=== PATIENT | female | born 1990 | race African-American/Black ===

== ENCOUNTER 2022-01-21 19:02 | Inpatient (IN) | payer MEDICAID ==
[~2022-01-21] VITALS: Ht 162.6 cm; Wt 81.6 kg
[~2022-01-21 19:02] MED LIST: ALBUTEROL
[2022-01-21 20:26] LABS: CLARITY URINE CLEAR (CLEAR); COLOR URINE YELLOW (YELLOW); KETONES URINE NEGATIVE (NEGATIVE); LEUKOCYTE ESTERASE URINE 1+ (NEGATIVE); NITRITE URINE NEGATIVE (NEGATIVE); OCCULT BLOOD URINE TRACE (NEGATIVE); PROTEIN URINE 1+ (NEGATIVE); SPECIFIC GRAVITY URINE 1.018 (1.005-1.030)
[2022-01-21] MEDS: LACTATED RINGERS 1,000 ML IV SCH (23:09)
[2022-01-21] MEDS ORDERED: CEFAZOLIN 2,000 MG in DEXT 5% WATER 100 ML IV NR (23:30)
[2022-01-22] MEDS: TERBUTALINE SULFATE 1MG/ML VIAL SUBCUT PRN ×2 (00:28→00:58)
[2022-01-22] MEDS ORDERED: BETAMETHASONE ACET/BETAMET 30 MG/5 ML VIAL IM ONE (01:15)
[2022-01-22] MEDS ORDERED: BUTORPHANOL TARTRATE 2 MG/ML VIAL IV PRN (01:15)
[2022-01-22] MEDS: LACTATED RINGERS 1,000 ML IV SCH (02:24)
[2022-01-22] MEDS ORDERED: LACTATED RINGERS 1,000 ML IV SCH (03:30)
[2022-01-22] MEDS ORDERED: METHYLERGONOVINE MALEATE 0.2 MG/ML IM PRN (03:30)
[2022-01-22] MEDS ORDERED: NALOXONE HCL 0.4 MG/ML 1ML VIAL IM PRN (03:30)
[2022-01-22] MEDS ORDERED: DEXT 5%/LR + PITOCIN 20UNITS/L 1,000 ML IV SCH ×2 (03:30→06:30)
[2022-01-22] MEDS ORDERED: MAGNESIUM 4 G PREMIX 100 ML IV NR (03:30)
[2022-01-22 04:27] LABS: BASOPHILS % 0.2 % (0.0-2.0); EOSINOPHILS % 0.1 % (0.0-5.0); HEMATOCRIT. 30.9 % (36.0-48.0); HEMOGLOBIN. 10.5 g/dL (12.0-16.0); LYMPHOCYTES % 7.6 % (20.0-50.0); MEAN CORPUSCULAR HEMOGLOBIN 28.7 pg (28.0-32.0); MEAN CORPUSCULAR VOLUME 84.2 fL (81.0-99.0); MEAN PLATELET VOLUME 8.4 fl (7.4-10.4); MONOCYTES % 7.4 % (2.0-8.0); NEUTROPHILS % 84.7 % (40.0-76.0); PLATELET 338 x1000/uL (130-400); RED BLOOD CELL COUNT 3.67 mill/uL (4.2-5.4); RED CELL DISTRIBUTION WIDTH 14.5 % (11.6-14.6)
[2022-01-22] MEDS ORDERED: CEFAZOLIN SODIUM 1000MG/VIAL ONE (04:29)
[2022-01-22] MEDS ORDERED: OXYTOCIN 10 UNITS/ML 1ML ONE (04:29)
[2022-01-22] MEDS ORDERED: DEXAMETHASONE 4MG/ML 1ML VIAL ONE (04:30)
[2022-01-22] MEDS ORDERED: ONDANSETRON HCL 4MG/2ML INJ ONE (04:30)
[2022-01-22] MEDS ORDERED: EPHEDRINE SULFATE 50MG/ML VIAL ONE (04:30)
[2022-01-22 04:40] LABS: INR 0.9; PARTIAL THROMBOPLASTIN TIME 30.2 sec (23.4-31.0); PROTHROMBIN TIME 9.8 sec (9.6-11.0)
[2022-01-22] MEDS ORDERED: MORPHINE SULFATE/PF 1MG/ML 10ML AMP ONE (04:48)
[2022-01-22] MEDS ORDERED: NALOXONE HCL 0.4 MG/ML 1ML VIAL IV PRN ×2 (05:30→06:00)
[2022-01-22] MEDS ORDERED: PHENYLEPHRINE HCL 10 MG/ML 1ML (IV VIAL) IV ONE (05:41)
[2022-01-22] MEDS ORDERED: HYDROMORPHONE HCL/PF 2MG/ML CPJ IM PRN (06:30)
[2022-01-22] MEDS ORDERED: DIPHENHYDRAMINE 25MG CAPSULE PO PRN (06:30)
[2022-01-22] MEDS ORDERED: BISACODYL 10MG SUPP PR PRN (06:30)
[2022-01-22] MEDS ORDERED: IBUPROFEN 400MG TABLET PO PRN (06:30)
[2022-01-22] MEDS ORDERED: RHO(D) IMMUNE GLOBULIN 300 MCG/SYR IM PRN (06:30)
[2022-01-22 08:30] VITALS: BP 117/78
[2022-01-22 08:54] LABS: HEPATITIS B SURFACE ANTIGEN NEGATIVE
[2022-01-22 09:00] VITALS: BP 120/78
[2022-01-22 15:38] VITALS: BP 110/81
[2022-01-22 22:00] VITALS: BP 121/71
[2022-01-23 00:01] VITALS: BP 119/57
[2022-01-23 04:15] VITALS: BP 110/58
[2022-01-23] MEDS: IBUPROFEN 800MG TABLET PO PRN ×2 (04:24→21:53)
[2022-01-23 07:51] LABS: BASOPHILS % 0.2 % (0.0-2.0); EOSINOPHILS % 0.7 % (0.0-5.0); HEMATOCRIT. 24.1 % (36.0-48.0); HEMOGLOBIN. 8.2 g/dL (12.0-16.0); LYMPHOCYTES % 11.5 % (20.0-50.0); MEAN CORPUSCULAR HEMOGLOBIN 28.6 pg (28.0-32.0); MEAN CORPUSCULAR VOLUME 84.1 fL (81.0-99.0); MEAN PLATELET VOLUME 8.5 fl (7.4-10.4); MONOCYTES % 9.6 % (2.0-8.0); PLATELET 308 x1000/uL (130-400); RED BLOOD CELL COUNT 2.87 mill/uL (4.2-5.4); RED CELL DISTRIBUTION WIDTH 14.7 % (11.6-14.6)
[2022-01-23 08:07] LABS: *AMPHETAMINES SCREEN URINE NEGATIVE (NEGATIVE); *BENZODIAZEPINES SCREEN URINE NEGATIVE (NEGATIVE); *COCAINE SCREEN URINE NEGATIVE (NEGATIVE); OPIATES URINE SCREEN NEGATIVE (NEGATIVE); PHENCYCLIDINE URINE SCREEN NEGATIVE (NEGATIVE)
[2022-01-23 08:09] LABS: CANNABINOID URINE SCREEN PRESUMTIVE POSITIVE (NEGATIVE)
[2022-01-23 08:10] VITALS: BP 122/76
[2022-01-23] MEDS: FERROUS SULFATE 325MG TABLET PO SCH ×2 (08:20→13:54)
[2022-01-23] MEDS: PRENATAL VIT/FE FUMARATE/FA TABLET PO SCH (08:20)
[2022-01-23] MEDS: HYDROCODONE/ACETAMINOPHEN 5/325MG TABLET PO PRN ×3 (08:21→19:29)
[2022-01-23 12:11] LABS: *BARBITURATES SCREEN URINE NEGATIVE (NEGATIVE); METHADONE URINE SCREEN NEGATIVE (NEGATIVE)
[2022-01-23 16:30] VITALS: BP 120/89
[2022-01-23 19:30] VITALS: BP 121/61
[2022-01-23] MEDS ORDERED: PENICILLIN G BENZATHINE 2,400,000 UNITS/4ML SYR IM NR (20:00)
[2022-01-24 04:00] VITALS: BP 120/86
[2022-01-24 08:30] VITALS: BP 116/61
[2022-01-24] MEDS: FERROUS SULFATE 325MG TABLET PO SCH ×3 (08:45→15:52)
[2022-01-24] MEDS: HYDROCODONE/ACETAMINOPHEN 5/325MG TABLET PO PRN ×3 (08:46→20:30)
[2022-01-24] MEDS: PRENATAL VIT/FE FUMARATE/FA TABLET PO SCH (08:46)
[2022-01-24] MEDS: IBUPROFEN 800MG TABLET PO PRN (12:16)
[2022-01-24 16:35] VITALS: BP 126/76
[2022-01-24 19:30] VITALS: BP 118/62
[2022-01-25] MEDS: HYDROCODONE/ACETAMINOPHEN 5/325MG TABLET PO PRN ×2 (03:30→07:54)
[2022-01-25 04:00] VITALS: BP 137/76
[2022-01-25] MEDS ORDERED: FERR-63 PO (05:00)
[2022-01-25] MEDS ORDERED: IBUP-2030 PO (05:00)
[2022-01-25] MEDS ORDERED: MULT-1116 MT (05:00)
[2022-01-25] MEDS ORDERED: MEDROXYPROGESTERONE ACETATE 150MG/ML VIAL IM SCH (06:00)
[2022-01-25 07:50] VITALS: BP 109/67
[2022-01-25] MEDS: FERROUS SULFATE 325MG TABLET PO SCH (07:54)
[2022-01-25] MEDS: PRENATAL VIT/FE FUMARATE/FA TABLET PO SCH (07:54)
== END 2022-01-25 11:45 | disposition home or self-care (01) | DRG 540 ==
LOC: 8 EST LDRP 19:02 → OBSVTOIN 19:02 → 8EST 01-22 08:30
PROVIDERS: ADMIT Obstetrics & Gynecology; ATTEND Pediatrics Neonatal-Perinatal Medicine
PROC: 10D00Z1 Extraction of Products of Conception, Low, Open Approach (ICD-10-PCS; principal; 2022-01-25)
DX: O32.8XX2 Maternal care for other malpresentation of fetus, fetus 2 (principal); O60.14X1 Preterm labor third trimester with preterm delivery third trimester, fetus 1; O60.14X2 Preterm labor third trimester with preterm delivery third trimester, fetus 2; O99.324 Drug use complicating childbirth; Z37.2 Twins, both liveborn; A53.0 Latent syphilis, unspecified as early or late; O42.913 Preterm premature rupture of membranes, unspecified as to length of time between rupture and onset of labor, third trimester; O77.0 Labor and delivery complicated by meconium in amniotic fluid; O30.043 Twin pregnancy, dichorionic/diamniotic, third trimester; J45.909 Unspecified asthma, uncomplicated; F12.10 Cannabis abuse, uncomplicated; O99.52 Diseases of the respiratory system complicating childbirth; Z20.822 Contact with and (suspected) exposure to COVID-19; Z3A.35 35 weeks gestation of pregnancy; O90.81 Anemia of the puerperium; Z83.3 Family history of diabetes mellitus
CPT/HCPCS: 36415; 76805; 76810; 76815; 76818; 80305; 80349; 81003; 85025; 86592; 86593; 86703; 86762; 86780; 86850; 86900; 87340; 87426; 88307; 99281; G0378; J0561; J0595; J0690; J0702; J1050; J1100; J2274; J2370; J2405; J3105; J3475; J3490; J7060; J7120; A4315

== ENCOUNTER 2022-11-12 06:46 | Observation (INO) | payer MEDICAID ==
[~2022-11-12] VITALS: Ht 167.6 cm; Wt 78.5 kg
[~2022-11-12 06:46] MED LIST changes: +ALBU6.7H3 INH; +FERR-63 PO; +IBUP-2030 PO; +MULT-1116 MT; +PREN1TAB23 PO
[2022-11-12] MEDS ORDERED: ACETAMINOPHEN 500MG TABLET PO NR (08:00)
[2022-11-12] MEDS ORDERED: ONDANSETRON HCL 4MG/2ML INJ IV PRN (08:30)
[2022-11-12 10:26] LABS: CLARITY URINE CLEAR (CLEAR); COLOR URINE YELLOW (YELLOW); KETONES URINE NEGATIVE (NEGATIVE); LEUKOCYTE ESTERASE URINE NEGATIVE (NEGATIVE); NITRITE URINE NEGATIVE (NEGATIVE); OCCULT BLOOD URINE NEGATIVE (NEGATIVE); PROTEIN URINE TRACE (NEGATIVE); SPECIFIC GRAVITY URINE 1.014 (1.005-1.030); UROBILINOGEN URINE 0.2 E.U./dL (0.2-1.0)
[2022-11-12] MEDS ORDERED: DEXT 5%/LACTATED RINGERS 1,000 ML IV SCH (11:00)
[2022-11-12 11:11] LABS: HEMATOCRIT. 29.5 % (36.0-48.0); MEAN CORPUSCULAR HEMOGLOBIN 29.7 pg (28.0-32.0); MEAN CORPUSCULAR VOLUME 87.8 fL (81.0-99.0); MEAN PLATELET VOLUME 8.7 fl (7.4-10.4); PLATELET 292 x1000/uL (130-400); RED BLOOD CELL COUNT 3.36 mill/uL (4.2-5.4); RED CELL DISTRIBUTION WIDTH 14.6 % (11.6-14.6)
[2022-11-12 11:20] LABS: CHLORIDE 105 mEq/L (98-107)
[2022-11-12 11:46] LABS: PLATELET ESTIMATE NORMAL
[2022-11-12] MEDS ORDERED: OSELTAMIVIR 75MG CAPSULE PO NR (13:30)
== END 2022-11-12 13:30 | disposition home or self-care (01) ==
LOC: 8 EST LDRP 06:46
PROVIDERS: ADMIT Obstetrics & Gynecology; ATTEND Obstetrics & Gynecology
DX: O30.003 Twin pregnancy, unspecified number of placenta and unspecified number of amniotic sacs, third trimester (principal); Z20.822 Contact with and (suspected) exposure to COVID-19; O26.893 Other specified pregnancy related conditions, third trimester; R53.1 Weakness; R52 Pain, unspecified; Z3A.32 32 weeks gestation of pregnancy
CPT/HCPCS: 36415; 59025; 76805; 76810; 76815; 76818; 80053; 81003; 85025; 87426; 87804; 96360; 96361; G0378; 99281; J7121

== ENCOUNTER 2022-12-29 08:07 | Inpatient (IN) | payer MEDICAID, OTHER ==
[~2022-12-29] VITALS: Ht 167.6 cm; Wt 91.6 kg
[2022-12-29] MEDS ORDERED: METHYLERGONOVINE MALEATE 0.2 MG/ML IM PRN (10:00)
[2022-12-29] MEDS ORDERED: MISOPROSTOL 100MCG TABLET VG SCH (10:00)
[2022-12-29] MEDS ORDERED: OXYTOCIN 30 UNITS/500ML NS PMX 500 ML IV SCH (10:00)
[2022-12-29] MEDS ORDERED: CARBOPROST TROMETHAMINE 250 MCG/ML AMPUL IM PRN (10:00)
[2022-12-29] MEDS ORDERED: LACTATED RINGERS 1,000 ML IV SCH (10:00)
[2022-12-29 10:52] LABS: BASOPHILS % 0.3 % (0.0-2.0); EOSINOPHILS % 0.9 % (0.0-5.0); HEMATOCRIT. 33.7 % (36.0-48.0); HEMOGLOBIN. 11.3 g/dL (12.0-16.0); LYMPHOCYTES % 14.3 % (20.0-50.0); MEAN CORPUSCULAR HEMOGLOBIN 29.1 pg (28.0-32.0); MEAN PLATELET VOLUME 9.3 fl (7.4-10.4); MONOCYTES % 11.4 % (2.0-8.0); NEUTROPHILS % 73.1 % (40.0-76.0); PLATELET 290 x1000/uL (130-400); RED BLOOD CELL COUNT 3.88 mill/uL (4.2-5.4); RED CELL DISTRIBUTION WIDTH 14.8 % (11.6-14.6)
[2022-12-29 10:56] LABS: CLARITY URINE CLEAR (CLEAR); COLOR URINE YELLOW (YELLOW); KETONES URINE NEGATIVE (NEGATIVE); LEUKOCYTE ESTERASE URINE TRACE (NEGATIVE); NITRITE URINE NEGATIVE (NEGATIVE); OCCULT BLOOD URINE NEGATIVE (NEGATIVE); PROTEIN URINE TRACE (NEGATIVE); SPECIFIC GRAVITY URINE 1.015 (1.005-1.030)
[2022-12-29 11:02] LABS: INR 0.9; PARTIAL THROMBOPLASTIN TIME 27.1 sec (23.4-31.0); PROTHROMBIN TIME 9.7 sec (9.6-11.0)
[2022-12-29] MEDS ORDERED: MORPHINE SULFATE/PF 1MG/ML 10ML AMP ONE (11:34)
[2022-12-29] MEDS ORDERED: OXYTOCIN 10 UNITS/ML 1ML ONE (11:34)
[2022-12-29] MEDS ORDERED: NALOXONE HCL 0.4 MG/ML 1ML VIAL IV PRN (12:00)
[2022-12-29] MEDS ORDERED: MORPHINE SULFATE 2 MG/ML CPJ (NOT FOR IM USE) IV PRN (12:00)
[2022-12-29] MEDS ORDERED: FENTANYL CITRATE/PF 50MCG/ML 2ML VIAL IV PRN (12:00)
[2022-12-29] MEDS ORDERED: PHENYLEPHRINE HCL 10 MG/ML 1ML (IV VIAL) IV ONE (12:05)
[2022-12-29] MEDS ORDERED: TRANEXAMIC ACID 10 ML ONE (12:35)
[2022-12-29 12:39] LABS: *AMPHETAMINES SCREEN URINE NEGATIVE (NEGATIVE); *BARBITURATES SCREEN URINE NEGATIVE (NEGATIVE); *BENZODIAZEPINES SCREEN URINE NEGATIVE (NEGATIVE); *COCAINE SCREEN URINE NEGATIVE (NEGATIVE); CANNABINOID URINE SCREEN NEGATIVE (NEGATIVE); METHADONE URINE SCREEN NEGATIVE (NEGATIVE); OPIATES URINE SCREEN NEGATIVE (NEGATIVE); PHENCYCLIDINE URINE SCREEN NEGATIVE (NEGATIVE)
[2022-12-29 12:53] LABS: HEPATITIS B SURFACE ANTIGEN NEGATIVE
[2022-12-29] MEDS ORDERED: ONDANSETRON HCL 4MG/2ML INJ ONE (13:01)
[2022-12-29] MEDS ORDERED: KETOROLAC 60MG/2ML VIAL IM ONE (13:01)
[2022-12-29] MEDS ORDERED: DEXAMETHASONE 4MG/ML 1ML VIAL ONE (13:02)
[2022-12-29] MEDS ORDERED: CEFAZOLIN SODIUM 1000MG/VIAL ONE (13:02)
[2022-12-29] MEDS ORDERED: HYDROMORPHONE HCL/PF 2MG/ML CPJ IM PRN (13:30)
[2022-12-29] MEDS ORDERED: IBUPROFEN 400MG TABLET PO PRN (13:30)
[2022-12-29] MEDS ORDERED: DIPHENHYDRAMINE 25MG CAPSULE PO PRN (13:30)
[2022-12-29] MEDS ORDERED: BISACODYL 10MG SUPP PR PRN (13:30)
[2022-12-29] MEDS ORDERED: NALOXONE HCL 0.4MG/ML VIAL IV PRN (13:45)
[2022-12-29] MEDS ORDERED: ONDANSETRON HCL 4MG/2ML INJ IV PRN (16:00)
[2022-12-29 16:30] VITALS: BP 119/66
[2022-12-29 20:00] VITALS: BP 117/70
[2022-12-30 04:00] VITALS: BP 132/65
[2022-12-30] MEDS: KETOROLAC 30MG/ML VIAL IV SCH ×2 (04:15→13:07)
[2022-12-30 07:10] LABS: BASOPHILS % 0.6 % (0.0-2.0); EOSINOPHILS % 0.4 % (0.0-5.0); HEMATOCRIT. 29.8 % (36.0-48.0); HEMOGLOBIN. 10.4 g/dL (12.0-16.0); LYMPHOCYTES % 14.3 % (20.0-50.0); MEAN CORPUSCULAR HEMOGLOBIN 30.3 pg (28.0-32.0); MEAN CORPUSCULAR VOLUME 86.7 fL (81.0-99.0); NEUTROPHILS % 75.7 % (40.0-76.0); PLATELET 262 x1000/uL (130-400); RED BLOOD CELL COUNT 3.43 mill/uL (4.2-5.4); RED CELL DISTRIBUTION WIDTH 14.2 % (11.6-14.6)
[2022-12-30 08:00] VITALS: BP 105/54
[2022-12-30] MEDS: IBUPROFEN 800MG TABLET PO PRN ×2 (09:30→18:52)
[2022-12-30] MEDS: PRENATAL VIT/FE FUMARATE/FA TABLET PO SCH (09:30)
[2022-12-30] MEDS: FERROUS SULFATE 325MG TABLET PO SCH ×2 (09:30→13:07)
[2022-12-30 16:00] VITALS: BP 116/67
[2022-12-30 20:00] VITALS: BP 136/82
[2022-12-31] MEDS: IBUPROFEN 800MG TABLET PO PRN ×4 (01:48→20:53)
[2022-12-31 04:00] VITALS: BP 117/62
[2022-12-31 06:38] LABS: BASOPHILS % 0.3 % (0.0-2.0); EOSINOPHILS % 0.6 % (0.0-5.0); HEMATOCRIT. 29.7 % (36.0-48.0); HEMOGLOBIN. 10.3 g/dL (12.0-16.0); MEAN CORPUSCULAR HEMOGLOBIN 30.1 pg (28.0-32.0); MEAN CORPUSCULAR VOLUME 86.9 fL (81.0-99.0); MEAN PLATELET VOLUME 8.5 fl (7.4-10.4); MONOCYTES % 12.4 % (2.0-8.0); NEUTROPHILS % 68.7 % (40.0-76.0); PLATELET 285 x1000/uL (130-400); RED BLOOD CELL COUNT 3.42 mill/uL (4.2-5.4); RED CELL DISTRIBUTION WIDTH 14.6 % (11.6-14.6)
[2022-12-31 08:30] VITALS: BP 141/87
[2022-12-31] MEDS: PRENATAL VIT/FE FUMARATE/FA TABLET PO SCH (08:30)
[2022-12-31] MEDS: FERROUS SULFATE 325MG TABLET PO SCH ×2 (08:30→15:08)
[2022-12-31 20:00] VITALS: BP 109/73
[2023-01-01] MEDS: IBUPROFEN 800MG TABLET PO PRN (03:51)
[2023-01-01 04:00] VITALS: BP 129/85
[2023-01-01 08:00] VITALS: BP 151/84
[2023-01-01 08:30] VITALS: BP 145/81
== END 2023-01-01 12:33 | disposition home or self-care (01) | DRG 540 ==
LOC: 8 EST LDRP 08:07 → OBSVTOIN 10:05 → 8EST 16:18
PROVIDERS: ADMIT Obstetrics & Gynecology; ATTEND Obstetrics & Gynecology
PROC: 10D00Z1 Extraction of Products of Conception, Low, Open Approach (ICD-10-PCS; principal; 2022-12-29)
DX: O30.003 Twin pregnancy, unspecified number of placenta and unspecified number of amniotic sacs, third trimester (principal); D62 Acute posthemorrhagic anemia; Z37.2 Twins, both liveborn; O99.12 Other diseases of the blood and blood-forming organs and certain disorders involving the immune mechanism complicating childbirth; O32.3XX0 Maternal care for face, brow and chin presentation, not applicable or unspecified; Z20.822 Contact with and (suspected) exposure to COVID-19; O69.81X0 Labor and delivery complicated by cord around neck, without compression, not applicable or unspecified; Z3A.39 39 weeks gestation of pregnancy; O99.02 Anemia complicating childbirth; J45.909 Unspecified asthma, uncomplicated; D72.829 Elevated white blood cell count, unspecified
CPT/HCPCS: 36415; 80305; 81003; 85025; 86592; 86593; 86703; 86762; 86780; 86850; 86900; 86920; 87340; 87426; 88307; 99281; G0378; J0690; J1100; J1885; J2274; J2370; J2405; J7120; A4315; J2590

== ENCOUNTER 2023-01-09 14:25 | Emergency (ER) | payer MEDICAID ==
[~2023-01-09] VITALS: Ht 167.6 cm; Wt 80.0 kg
[~2023-01-09 14:25] MED LIST changes: -ALBU6.7H3 INH; -ALBUTEROL; -PREN1TAB23 PO
[2023-01-09 14:59] VITALS: BP 110/83
== END 2023-01-09 22:22 | disposition left against medical advice (07) ==
LOC: ER 14:25
DX: Z53.21 Procedure and treatment not carried out due to patient leaving prior to being seen by health care provider (principal)

== ENCOUNTER 2023-01-11 09:02 | Emergency (ER) | payer MEDICAID ==
[~2023-01-11] VITALS: Ht 167.6 cm; Wt 85.5 kg
[2023-01-11 09:24] VITALS: BP 156/98
[2023-01-11 14:32] LABS: HEMATOCRIT. 36.9 % (36.0-48.0); HEMOGLOBIN. 12.3 g/dL (12.0-16.0); MEAN CORPUSCULAR HEMOGLOBIN 29.4 pg (28.0-32.0); MEAN CORPUSCULAR VOLUME 88.6 fL (81.0-99.0); MEAN PLATELET VOLUME 6.7 fl (7.4-10.4); PLATELET 563 x1000/uL (130-400); RED BLOOD CELL COUNT 4.17 mill/uL (4.2-5.4); RED CELL DISTRIBUTION WIDTH 14.4 % (11.6-14.6)
[2023-01-11 14:39] LABS: CHLORIDE 107 mEq/L (98-107)
[2023-01-11] MEDS ORDERED: MULT-1116 MT (15:45)
[2023-01-11] MEDS ORDERED: IBUP-2030 PO (15:45)
[2023-01-11] MEDS ORDERED: FERR-63 PO (15:45)
[2023-01-11 16:17] LABS: PLATELET ESTIMATE INCREASED
== END 2023-01-11 16:32 | disposition home or self-care (01) ==
LOC: ER 09:02
DX: M79.641 Pain in right hand (principal); J45.909 Unspecified asthma, uncomplicated; Z98.890 Other specified postprocedural states
CPT/HCPCS: 36415; 80048; 83735; 85025; 99283

== ENCOUNTER 2023-06-27 06:49 | Emergency (ER) | payer MEDICAID, OTHER ==
[~2023-06-27] VITALS: Ht 167.6 cm; Wt 83.0 kg
[2023-06-27 06:54] VITALS: BP 149/85; PULSE 107; RESP 18; TEMP 98.1; O2SAT 98
[2023-06-27] MEDS ORDERED: ACETAMINOPHEN 325MG TABLET PO PRN (07:15)
== END 2023-06-27 08:19 | disposition home or self-care (01) ==
LOC: ER 06:49
DX: O26.891 Other specified pregnancy related conditions, first trimester (principal); R10.9 Unspecified abdominal pain; Z3A.08 8 weeks gestation of pregnancy
CPT/HCPCS: 99283